=== PATIENT | male | born 1960 | race African-American/Black ===

== ENCOUNTER 2016-04-21 10:12 | Outpatient (CLI) | payer MEDICARE, OTHER | END 2016-04-21 10:13 | LOC: POD 10:12 | PROVIDERS: ATTEND Podiatrist Public Medicine | DX: B35.1 Tinea unguium (principal); M21.41 Flat foot [pes planus] (acquired), right foot; M21.42 Flat foot [pes planus] (acquired), left foot; L60.0 Ingrowing nail; M79.674 Pain in right toe(s); M79.675 Pain in left toe(s) | CPT/HCPCS: 11721; G0463 ==

== ENCOUNTER 2016-08-25 10:09 | Outpatient (CLI) | payer MEDICARE, OTHER | END 2016-08-25 10:10 | LOC: POD 10:09 | PROVIDERS: ATTEND Podiatrist Public Medicine | DX: B35.1 Tinea unguium (principal); L60.0 Ingrowing nail; M20.41 Other hammer toe(s) (acquired), right foot; M20.42 Other hammer toe(s) (acquired), left foot; M79.675 Pain in left toe(s); M79.674 Pain in right toe(s) | CPT/HCPCS: 11721; G0463 ==

== ENCOUNTER 2016-11-24 09:55 | Outpatient (CLI) | payer MEDICARE, OTHER | END 2016-11-24 09:56 | LOC: POD 09:55 | PROVIDERS: ATTEND Podiatrist Public Medicine | DX: B35.1 Tinea unguium (principal); L60.0 Ingrowing nail; M79.674 Pain in right toe(s); M79.675 Pain in left toe(s); M21.42 Flat foot [pes planus] (acquired), left foot; M21.41 Flat foot [pes planus] (acquired), right foot | CPT/HCPCS: 11721; G0463 ==

== ENCOUNTER 2017-01-24 10:36 | Outpatient (CLI) | payer MEDICARE, OTHER ==
[2017-01-24 10:52] LABS: BASOPHILS % 0.8 (0.0-1.5); EOSINOPHILS % 1.6 % (0.0-6.8); MEAN CORPUSCULAR HEMOGLOBIN 29.2 pg (28.0-34.0); MEAN CORPUSCULAR VOLUME 94.6 fl (80.0-100.0); MONOCYTES % 5.6 % (0.0-11.0); NEUTROPHILS # 2.3 # k/uL (1.4-7.7)
[2017-01-24 11:43] LABS: eGFR (African) > 60; eGFR (Non-African) > 60
== END 2017-01-24 10:38 ==
LOC: LAB 10:36
PROVIDERS: ATTEND Family Medicine
DX: Z51.81 Encounter for therapeutic drug level monitoring (principal); G40.909 Epilepsy, unspecified, not intractable, without status epilepticus
CPT/HCPCS: 36415; 80053; 80177; 85025

== ENCOUNTER 2017-03-09 09:55 | Outpatient (CLI) | payer MEDICARE, OTHER | END 2017-03-09 09:56 | LOC: POD 09:55 | PROVIDERS: ATTEND Podiatrist Public Medicine | DX: B35.1 Tinea unguium (principal); L60.0 Ingrowing nail; M79.674 Pain in right toe(s); M79.675 Pain in left toe(s); M21.41 Flat foot [pes planus] (acquired), right foot; M21.42 Flat foot [pes planus] (acquired), left foot | CPT/HCPCS: 11721; G0463 ==

== ENCOUNTER 2017-05-31 09:44 | Outpatient (CLI) | payer MEDICARE, OTHER | END 2017-05-31 09:45 | LOC: LAB 09:44 | PROVIDERS: ATTEND Psychiatry & Neurology Psychiatry | DX: F79 Unspecified intellectual disabilities (principal) | CPT/HCPCS: 36415; 82306 ==

== ENCOUNTER 2017-06-08 09:58 | Outpatient (CLI) | payer MEDICARE, OTHER | END 2017-06-08 10:00 | LOC: POD 09:58 | PROVIDERS: ATTEND Podiatrist Public Medicine | DX: B35.1 Tinea unguium (principal); M21.41 Flat foot [pes planus] (acquired), right foot; M21.42 Flat foot [pes planus] (acquired), left foot; L60.0 Ingrowing nail; M79.674 Pain in right toe(s); M79.675 Pain in left toe(s) | CPT/HCPCS: 11721; G0463 ==

== ENCOUNTER 2017-09-21 10:26 | Outpatient (CLI) | payer MEDICARE, OTHER | END 2017-09-21 10:28 | LOC: POD 10:26 | PROVIDERS: ATTEND Podiatrist Public Medicine | DX: B35.1 Tinea unguium (principal); L60.0 Ingrowing nail; M79.674 Pain in right toe(s); M79.675 Pain in left toe(s); M21.41 Flat foot [pes planus] (acquired), right foot; M21.42 Flat foot [pes planus] (acquired), left foot | CPT/HCPCS: 11721; G0463 ==

== ENCOUNTER 2018-12-22 14:45 | Outpatient (CLI) | payer MEDICARE, OTHER ==
[2018-12-22 15:30] LABS: eGFR (Non-African) 48
== END 2018-12-22 14:50 ==
LOC: LAB 14:45
PROVIDERS: ATTEND Nurse Practitioner Family
DX: R94.4 Abnormal results of kidney function studies (principal)
CPT/HCPCS: 36415; 80048

== ENCOUNTER 2018-12-26 12:28 | Outpatient (CLI) | payer MEDICARE, OTHER ==
[2018-12-26] MEDS ORDERED: 0.9 % SODIUM CHLORIDE 1,000 ML IV ONE (12:54)
[2018-12-26 15:28] LABS: eGFR (Non-African) 52
== END 2018-12-26 14:35 | disposition home or self-care (01) ==
LOC: INF 12:28
PROVIDERS: ATTEND Nurse Practitioner Family
DX: E86.0 Dehydration (principal)
CPT/HCPCS: 36415; 80048; J7030; S1016